=== PATIENT | female | born 1935 | race Caucasian/White ===

== ENCOUNTER 2020-08-14 22:34 | Emergency (ER) | payer OTHER ==
[~2020-08-14] VITALS: Ht 162.6 cm; Wt 71.2 kg
[2020-08-14 22:40] VITALS: Ht 162.6 cm; Wt 71.2 kg
[2020-08-15 00:03] VITALS: BP 163/64
== END 2020-08-15 00:08 | disposition home or self-care (01) ==
LOC: ED 22:34
DX: R51.9 Headache, unspecified (principal); T46.5X1A Poisoning by other antihypertensive drugs, accidental (unintentional), initial encounter; Z98.890 Other specified postprocedural states; Y92.89 Other specified places as the place of occurrence of the external cause